=== PATIENT | male | born 1995 | race African-American/Black ===

== ENCOUNTER 2017-01-30 12:07 | Emergency (ER) | payer OTHER ==
[2017-01-30 12:12] VITALS: BP 120/55; PULSE 75; TEMP 97.6; BMI 24.7
--- NOTE | 2017-01-30 12:18 | PDOC ---
History of Present Illness - General Chief Complaint: Allergic Reaction Stated Complaint: RASHES ON BODY Time Seen by Provider: 01/30/17 12:15 History Source: Patient Exam Limitations: No Limitations - History of Present Illness Initial Comments: CHIEF COMPLAINT: 21 y/o male who is allergic to shellfish and works at [employer] c/o left hand redness and swelling after working at [employer] yesterday. 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 He denies cough, CP, SOB, lip/face swelling, feeling of throat closing. Vital signs on arrival are within normal limits. REVIEW OF SYSTEMS: GENERAL/CONSTITUTIONAL: No fever/chills. No weakness. No weight change. MUSCULOSKELETAL: No joint or muscle swelling or pain. No neck or back pain. SKIN: +red, swollen left hand. NEUROLOGIC: No headache, vertigo, loss of consciousness, or loss of sensation. PHYSICAL EXAM: GENERAL: The patient is awake, alert, and fully oriented, in no acute distress. HEAD: Normal with no signs of trauma. ENT: No face or tongue swelling. Airway patent. Pupils equal, round and reactive to light, extraocular movements intact, sclera anicteric, conjunctiva clear. LUNGS: CTA EXTREMITIES: Normal range of motion. Left dorsal hand and dorsal fingers with raised, erythematous hives, consistent with urticaria. No streaking. NEUROLOGICAL: Normal speech, normal gait. SKIN: Warm, Dry, normal turgor, no rashes or lesions noted. Past History - Past Medical History Allergies/Adverse Reactions: Allergies Allergy/AdvReac Type Severity Reaction Status Date / Time shellfish derived Allergy Rash Verified 01/30/17 12:10 Home Medications: Ambulatory Orders Hydrocortisone 1% Ointment [Hytone 1% Ointment -] 1 applic TP TID #1 tube Prednisone [Deltasone -] 40 mg PO DAILY #8 tablet 01/30/17 - Psycho/Social/Smoking Cessation Hx Anxiety: No Suicidal Ideation: No Smoking History: Never smoked Have you smoked in the past 12 months: No Information on smoking cessation initiated: No Hx Alcohol Use: No Drug/Substance Use Hx: No Substance Use Type: None *Physical Exam - Vital Signs Last Vital Signs Temp Pulse Resp BP Pulse Ox 97.6 F 75 18 120/55 100 01/30/17 12:10 01/30/17 12:10 01/30/17 12:10 01/30/17 12:10 01/30/17 12:10 Medical Decision Making - Medical Decision Making A/P: 21 y/o male with hives to left hand. Plan is as follows: 1. PO prednisone. Will send 4 day course of prednisone and hydrocortisone cream to his pharmacy and instructed him to use as directed. 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 Instructed him to return to the ER with any wrosening or concerning symptoms. The patient verbalizes understanding of all instructions, has no further questions and is awaiting discharge. *DC/Admit/Observation/Transfer Diagnosis at time of Disposition: Hives - Discharge Dispostion Disposition: HOME Condition at time of disposition: Good - Prescriptions Prescriptions: Prednisone [Deltasone -] 40 mg PO DAILY #8 tablet Hydrocortisone 1% Ointment [Hytone 1% Ointment -] 1 applic TP TID #1 tube - Patient Instructions Printed Discharge Instructions: DI for General Allergic Reactions, DI for Hives Additional Instructions: Discharge Instructions: -2 prescriptions were sent to your pharmacy; please take as prescribed -Use full length arm gloves if working in the dishroom at work -REturn to the ER with any worsening or concerning symptoms - Post Discharge Activity Work/School Note: Back to Work
[2017-01-30] MEDS ORDERED: predniSONE 20 MG TABLET (UD) PO ONE (13:08)
[2017-01-30] MEDS ORDERED: predniSONE 20 MG TABLET (UD) ONE (13:11)
== END 2017-01-30 13:18 | disposition home or self-care (01) ==
LOC: JERFT 12:07
DX: L23.6 Allergic contact dermatitis due to food in contact with the skin (principal); L50.0 Allergic urticaria; Z91.013 Allergy to seafood
CPT/HCPCS: 99281-25